=== PATIENT | female | born 1935 | race Caucasian/White ===

== ENCOUNTER → 2017-08-15 | Outpatient (CLI) | payer OTHER ==
[~2017-08-15] MED LIST: AMBIEN 10 MG TA10 MG PO; AMITRIPTYLINE H10 M1 PO; ATENOLOL 50 MG50 M1 PO; CALCIUM 500 +1 EAC5 PO; HYDROCHLOROTHIA25 M1 PO; HYDROCODON-ACE1 EAC7 PO; IBUPROFEN 200200 M1 PO; MELOXICAM7.5 MG PO; MOBIC7.5 MG PO; NEURONTIN 300300 M1 PO; NEURONTIN600 MG PO; SYNTHROID112 MCG PO; TEGRETOL XR100 MG PO; VITAMIN D-32000 UNIT PO; VITAMIN E400 UNIT PO
== END ==
LOC: RAD 12:40
DX: Z12.31 Encounter for screening mammogram for malignant neoplasm of breast (principal)

== ENCOUNTER → 2018-10-18 | Outpatient (CLI) | payer OTHER | LOC: RAD 09:25 | DX: Z12.31 Encounter for screening mammogram for malignant neoplasm of breast (principal) ==

== ENCOUNTER → 2018-10-19 | Outpatient (CLI) | payer OTHER | LOC: ULTRA 13:46 | DX: N63.10 Unspecified lump in the right breast, unspecified quadrant (principal); R92.2 Inconclusive mammogram ==